=== PATIENT | male | born 1975 | race Caucasian/White ===

== ENCOUNTER 2020-01-17 05:49 | Emergency (ER) | payer OTHER ==
[2020-01-17] MEDS ORDERED: DIPHENHYDRAMINE HCL 50 MG/ML VIAL IV ONE (06:49)
[2020-01-17] MEDS ORDERED: HYDROMORPHONE HCL INJ/PF 2 MG/ML AMPULE IV ONE ×4 (06:49→14:11)
[2020-01-17] MEDS ORDERED: NORMAL SALINE 1000 ML 1,000 ML IV ONE (06:51)
[2020-01-17 07:24] LABS: ABSOLUTE BASOPHILS # (AUTO) 0.1 10^3/uL (0.0-0.2); ABSOLUTE EOSINOPHILS # (AUTO) 0.2 10^3/uL (0.0-0.6); ABSOLUTE LYMPHOCYTES (AUTO) 1.9 10^3/uL (0.5-4.7); ABSOLUTE MONOCYTES (AUTO) 1.2 10^3/uL (0.1-1.4); ABSOLUTE NEUT (AUTO) 8.7 10^3/uL (1.7-8.2); BASOPHILS % (AUTO) 0.4 % (0-2); EOSINOPHILS % (AUTO) 1.7 % (0-6); HEMATOCRIT 39.3 % (37.9-51.0); HEMOGLOBIN 13.5 g/dL (13.5-17.0); LYMPHOCYTES % (AUTO) 15.7 % (13-45); MEAN CORPUSCULAR HEMOGLOBIN 29.1 pg (27.0-33.4); MEAN CORPUSCULAR HGB CONC 34.4 g/dL (32.0-36.0); MEAN CORPUSCULAR VOLUME 85 fl (80-97); MONOCYTES % (AUTO) 9.9 % (3-13); PLATELET COUNT 235 10^3/uL (150-450); RED BLOOD COUNT 4.64 10^6/uL (4.35-5.55); RED CELL DISTRIBUTION WIDTH 13.7 % (11.5-14.0); SEGMENTED NEUTROPHILS % (AUTO) 72.3 % (42-78); TOTAL CELLS COUNTED % (AUTO) 100 %
[2020-01-17 07:39] LABS: ALBUMIN 3.9 g/dL (3.5-5.0); ALKALINE PHOSPHATASE 81 U/L (38-126); ANION GAP 7 (5-19); ASPARTATE AMINO TRANSFERASE 27 U/L (17-59); BILIRUBIN,DIRECT 0.3 mg/dL (0.0-0.4); BILIRUBIN,TOTAL 0.8 mg/dL (0.2-1.3); BLOOD UREA NITROGEN 16 mg/dL (7-20); CALCIUM 8.9 mg/dL (8.4-10.2); CARBON DIOXIDE 21 mmol/L (22-30); CHLORIDE 104 mmol/L (98-107); GLUCOSE 112 mg/dL (75-110); POTASSIUM 4.2 mmol/L (3.6-5.0); TOTAL PROTEIN 6.3 g/dL (6.3-8.2)
--- NOTE | 2020-01-17 08:47 | RADIOLOGY REPORT (SQ) ---
EXAM DESCRIPTION: CT LT LOWER EXTREMITY WITHOUT IMAGES COMPLETED DATE/TIME: 01/17/2020 8:23 am REASON FOR STUDY: post op orthopedic /trauma COMPARISON: None. EXAM PARAMETERS: TECHNIQUE:Axial imaging performed through the left ankle with reformatted coronal a nd sagittal imaging windowed for bone and soft tissues. Images saved to PACS. 3D IMAGING: Were 3D images as MIP, SSD, or volume rendering performed at the work station? No All CT scanners at this facility use dose modulation, iterative reconstruction, and/or weight based d osing when appropriate to reduce radiation dose to as low as reasonably achievable (ALARA). [facility]: Dose Right [facility]: [employer] [facility]: Dose Right [facility]: [employer] 4D [facility]: [employer] RADIATION DOSE: CT Rad equipment meets quality standard of care and radiation dose reduction techniqu es were employed. CTDIvol: 4.1 mGy. DLP: 106 mGy-cm. mGy. LIMITATIONS: None. FINDINGS: SOFT TISSUES: Mild edema is present in the superficial soft tissues about the ankle with s everal small foci of gas, which may be secondary to recent surgical intervention. BONES: Plate and screw fixation of the distal fibula is present traversing a nondisplaced fracture in the distal fibular shaft as well as a distal fibular fracture at the ankle mortise. Mild streak art ifact is present from the metallic hardware. There is a 1.5 cm ovoid osseous fragment at the anterio r aspect of the distal fibula (sagittal images 39-40). The talar dome is intact. MINERALIZATION: Normal. OTHER: No other significant finding. IMPRESSION: Status post ORIF of the distal fibula. Small foci of gas in the soft tissues are presum ed to be postoperative, correlate with timing of surgery. The hardware appears intact. A 1.5 cm osseous fragment is present at the anterior aspect of the dist al fibula (sagittal images 39-40). No comparison imaging is available to evaluate for stability or c hange. TECHNICAL DOCUMENTATION: JOB ID: [id number] [facility] [id number]: Final reports with documentation of one or more dose reduction techniques (e.g., Automate d exposure control, adjustment of the mA and/or kV according to patient size, use of iterative recons truction technique) 2010 [employer]- All Rights Reserved Reading location - IP/workstation name: [email or web address]
[2020-01-17 11:56] VITALS: BP 129/97
--- NOTE | 2020-01-17 13:00 | ER Document Report ---
Entered by FLAQUITO LUGO SCRIBE 01/17/20 0710 Acting as scribe for:KERWIN PALMER MD ED Extremity Problem, Lower - General Chief Complaint: Post Surgical Pain Stated Complaint: LEG PAIN POST OP Time Seen by Provider: 01/17/20 06:09 Primary Care Provider: MAGEN AGUILAR MD [Primary Care Provider] - Follow up as needed Information source: Patient Notes: This 44 year old male patient presents to the emergency department today with post surgical pain in his LLE. Patient states he had surgery yesterday at [facility] to repair a tib/fib fracture to his LLE. Patient states the fracture was caused by a brake bar snapping when working on his car. Patient states a nerve abdi was injected in his knee for the pain and has worn off this morning. 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 Denies any cough or shortness of breath. - Related Data Allergies/Adverse Reactions: No Known Allergies Allergy (Unverified 01/17/20 06:01) Home Medications: oxy 5mg Past Medical History - General Information source: Patient - Social History Smoking Status: Current Every Day Smoker Cigarette use (# per day): Yes Lives with: Family Family History: Reviewed & Not Pertinent Patient has homicidal ideation: No Psychiatric Medical History: Reports: Hx Attention Deficit Hyperactivity Disorder, Hx Post Traumatic Stress Disorder Traumatic Medical History: Reports: Hx Fractures - L tib/fib Past Surgical History: Reports: Hx Orthopedic Surgery - L tib/fib fracture repa ir Review of Systems - Review of Systems Constitutional: No symptoms reported EENT: No symptoms reported Cardiovascular: No symptoms reported Respiratory: See HPI. denies: Cough, Short of breath Gastrointestinal: No symptoms reported Genitourinary: No symptoms reported Male Genitourinary: No symptoms reported Musculoskeletal: See HPI, Other - LLE pain Skin: No symptoms reported Hematologic/Lymphatic: No symptoms reported Neurological/Psychological: No symptoms reported -: Yes All other systems reviewed and negative Physical Exam - Vital signs Vitals: Temp Pulse Resp BP Pulse Ox 99.4 F 91 22 H 127/79 H 98 01/17/20 05:54 01/17/20 05:54 01/17/20 05:54 01/17/20 05:54 01/17/20 05:54 - General General appearance: Appears well, Alert - HEENT Head: Normocephalic, Atraumatic Eyes: Normal Pupils: PERRL Neck: Normal, Supple - Respiratory Respiratory status: No respiratory distress Chest status: Nontender Breath sounds: Normal Chest palpation: Normal - Cardiovascular Rhythm: Regular Heart sounds: Normal auscultation, S1 appreciated, S2 appreciated Murmur: No - Abdominal Inspection: Normal, Other - Soft Distension: No distension Bowel sounds: Normal Tenderness: Nontender - Extremities General upper extremity: Normal inspection. No: Edema Notes: LLE is held in a cast. Skin is pink. Able to move toes and distal sensation is intact. - Neurological Neuro grossly intact: Yes Cognition: Normal Orientation: AAOx4 [place] Coma Scale Eye Opening: Spontaneous Remi Coma Scale Verbal: Oriented [place] Coma Scale Motor: Obeys Commands [place] Coma Scale Total: 15 Speech: Normal Sensory: Normal - Psychological Associated symptoms: Normal affect, Normal mood - Skin Skin Temperature: Warm Skin Moisture: Dry Skin Color: Normal Course - Re-evaluation Re-evalutation: 01/17/20 12:[address] Morro Holcomb, [facility] in [facility]. He is a colleague of who is the surgeon that operated on our patient yesterday. Patient had an open reduction internal fixation of the left ankle. Patient has been accepted as a direct admit to the orthopedic hospital day at [facility] at this point time pending bed assignment and then transportation will be arranged. Patient is medically stable and currently pain management under control. Reason for transfer is that patient has been requiring inordinate amount of IV pain medications for his postop surgery that occurred yesterday Dr. Self and I discussed whether or not outpatient management would be acceptable and I advised him that with what we have done for patient here in this department receiving IV medications every 1-1/2 hours a thought and patient was preferred. - Vital Signs Vital signs: Temp Pulse Resp BP Pulse Ox 99.4 F 91 22 H 129/97 H 92 01/17/20 05:54 01/17/20 05:54 01/17/20 05:54 01/17/20 11:30 01/17/20 11:30 - Laboratory Result Diagrams: 01/17/20 07:09 01/17/20 07:09 Laboratory results interpreted by me: 01/17/20 01/17/20 07:09 07:09 WBC 12.0 H Absolute Neuts (auto) 8.7 H Sodium 131.6 L Carbon Dioxide 21 L Glucose 112 H Laboratories within normal limits. Except low low sodium at 131 glucose 112. Carbon dioxide 21. 01/17/20 07:09 01/17/20 07:09 MCV 85 fl (80-97) 01/17/20 07:09 MCH 29.1 pg (27.0-33.4) 01/17/20 07:09 MCHC 34.4 g/dL (32.0-36.0) 01/17/20 07:09 RDW 13.7 % (11.5-14.0) 01/17/20 07:09 Seg Neutrophils % 72.3 % (42-78) 01/17/20 07:09 Chloride 104 mmol/L (98-107) 01/17/20 07:09 Carbon Dioxide 21 mmol/L (22-30) L 01/17/20 07:09 Anion Gap 7 (5-19) 01/17/20 07:09 Est GFR ( Amer) > 60 (>60) 01/17/20 07:09 Glucose 112 mg/dL (75-110) H 01/17/20 07:09 Calcium 8.9 mg/dL (8.4-10.2) 01/17/20 07:09 Total Bilirubin 0.8 mg/dL (0.2-1.3) 01/17/20 07:09 AST 27 U/L (17-59) 01/17/20 07:09 Alkaline Phosphatase 81 U/L (38-126) 01/17/20 07:09 Total Protein 6.3 g/dL (6.3-8.2) 01/17/20 07:09 Albumin 3.9 g/dL (3.5-5.0) 01/17/20 07:09 - Diagnostic Test Radiology reviewed: Image reviewed, Reports reviewed Radiology results interpreted by me: 01/17/20 12:[address] 01/17/20 06:52 IMPRESSION: Status post ORIF of the distal fibula. Small foci of gas in the soft tissues are presumed to be postoperative, correlate with timing of surgery. The hardware appears intact. A 1.5 cm osseous fragment is present at the anterior aspect of the distal fibula (sagittal images 39-40). No comparison imaging is available to evaluate for stability or change. As stated above the CT scan of the lower extremity shows postoperative changes no significant other finding other than recent surgery. Discharge - Discharge Clinical Impression: Postop pain lower extremity Condition: Stable Disposition: [facility] Referrals: MAGEN AGUILAR MD [Primary Care Provider] - Follow up as needed I personally performed the services described in the documentation, reviewed and edited the documentation which was dictated to the scribe in my presence, and it accurately records my words and actions.
== END 2020-01-17 14:15 | disposition short-term general hospital (02) ==
LOC: ER 05:49
DX: G89.18 Other acute postprocedural pain (principal); M79.605 Pain in left leg; S82.202D Unspecified fracture of shaft of left tibia, subsequent encounter for closed fracture with routine healing; S82.402D Unspecified fracture of shaft of left fibula, subsequent encounter for closed fracture with routine healing; W22.8XXD Striking against or struck by other objects, subsequent encounter; F17.210 Nicotine dependence, cigarettes, uncomplicated
CPT/HCPCS: 96376; 99285; 96361; 96374; 96375; 36415; 85025; 80053; 73700; J1200; J1170; J7030